=== PATIENT | female | born 1995 | race Two or more races ===

== ENCOUNTER 2022-05-23 21:28 | Emergency (ER) | payer MEDICAID, OTHER ==
[~2022-05-23] VITALS: Ht 154.9 cm; Wt 48.2 kg
[2022-05-23 22:51] VITALS: BP 95/62
== END 2022-05-24 06:18 | disposition left against medical advice (07) ==
LOC: ER 21:28
DX: K08.89 Other specified disorders of teeth and supporting structures (principal); Z53.21 Procedure and treatment not carried out due to patient leaving prior to being seen by health care provider